=== PATIENT | female | born 1985 | race Caucasian/White ===

== ENCOUNTER 2017-02-22 20:12 | Emergency (ER) | payer OTHER ==
[~2017-02-22] VITALS: Ht 167.6 cm; Wt 63.5 kg
[~2017-02-22 20:12] MED LIST: LEVO125T PO; LEVO175T9 PO
[2017-02-22 20:28] VITALS: BP 123/77
[2017-02-22] MEDS ORDERED: MORPHINE SULFATE INJ 2 MG/ML DISP.SYRIN IM ONE (21:00)
[2017-02-22] MEDS ORDERED: ONDANSETRON 4 MG TAB.RAPDIS SL ONE (21:00)
[2017-02-22] MEDS ORDERED: MORPHINE SULFATE INJ 10 MG/ML DISP.SYRIN ONE (21:07)
[2017-02-22] MEDS ORDERED: ONDANSETRON 4 MG TAB.RAPDIS ONE (21:08)
== END 2017-02-22 21:19 | disposition home or self-care (01) ==
LOC: ER 20:12
DX: R10.9 Unspecified abdominal pain (principal); G89.29 Other chronic pain; Z88.6 Allergy status to analgesic agent; Z88.1 Allergy status to other antibiotic agents
CPT/HCPCS: A4606; J2270; Q0162; Z7610